=== PATIENT | male | born 1960 | race Caucasian/White ===

== ENCOUNTER 2020-03-19 11:20 | Emergency (ER) | payer OTHER, SELFPAY ==
--- NOTE | ~2020-03-19 | XR_ITS ---
EXAMINATION: XR lumbar spine 2-3V EXAM DATE: 03/19/2020 12:19 INDICATION: back pain started yesterday no injury. TECHNIQUE: Lumber spine frontal, lateral, lateral L5-S1 projections for interpretation. There is no prior study for comparison. FINDINGS: There is mild to moderate L5-S1 disc disease, mild at the other lumbar levels. Small lumba r endplate osteophytes. Mild upper lumbar, mild to moderate mid and lower lumbar facet arthropathy. S acrum, sacroiliac joints, sacral arcuate lines are intact. Paraspinal soft tissue is unremarkable. IMPRESSION: Mild to moderate lumbar spondylosis. Reviewed, dictated and finalized at location B. RAPHIC INFORMATION SYSTEM SURVEYOR
[2020-03-19 11:45] VITALS: BP 135/76; PULSE 101; RESP 24; TEMP 36.4; O2SAT 100
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
[2020-03-19] MEDS: KETOROLAC (*BKC) 60 MG/2 ML VIAL IM (12:29)
== END 2020-03-19 12:48 | disposition home or self-care (01) ==
PROVIDERS: Emergency Provider Nurse Practitioner Family
DX: M54.5 Low back pain (principal); T33.90XA Superficial frostbite of unspecified sites, initial encounter; X31.XXXA Exposure to excessive natural cold, initial encounter; M47.816 Spondylosis without myelopathy or radiculopathy, lumbar region; F17.210 Nicotine dependence, cigarettes, uncomplicated
CPT/HCPCS: 72100; 96372; 99213; G0463; J1885

== ENCOUNTER 2020-05-15 11:41 | Emergency (ER) | payer OTHER, SELFPAY ==
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
[2020-05-15 11:59] VITALS: BP 154/101; PULSE 90; RESP 16; TEMP 37.3; O2SAT 99
--- NOTE | 2020-05-15 12:22 | PC.NURSE ---
merchandise clerk gave report to anant ames
== END 2020-05-15 12:28 | disposition short-term general hospital (02) ==
LOC: EXPCOLL 11:44
PROVIDERS: Emergency Provider Nurse Practitioner
DX: J39.2 Other diseases of pharynx (principal); Z20.822 Contact with and (suspected) exposure to COVID-19; Z59.0 Homelessness; Z87.891 Personal history of nicotine dependence
CPT/HCPCS: 87081; 87426; 87880; 99213; C9803; G0463

== ENCOUNTER 2020-05-15 12:45 | Observation (INO) | payer OTHER, SELFPAY ==
[2020-05-15] VITALS (11 sets, daily range): BP systolic 124–160; BP diastolic 54–103; PULSE 69–86; RESP 13–18; TEMP 36.9–37.2; O2SAT 96–100; BMI 22.5
--- NOTE | ~2020-05-15 | XR_ITS ---
XR chest 1V portable 05/15/2020 15:12 Indication: Cough Procedure: AP portable chest Comparison: 08/28/2013 Findings: Heart size normal. Developing left basilar airspace disease. No pleural effusion, edema or pneumothorax. No acute osseous abnormality. Impression: 1: Left basilar airspace disease may represent atelectasis and/or pneumonia. Reviewed, dictated and finalized at location A. TS INSTRUCTOR Impression: 1: Left basilar airspace disease may represent atelectasis and/or pneumonia.
--- NOTE | ~2020-05-15 | CT_ITS ---
EXAMINATION: CT soft tissue neck w con EXAM DATE: 05/15/2020 13:27 INDICATION: Throat swelling. TECHNIQUE: Spiral CT of the neck was performed following intravenous injection of 75 mL Omnipaque 350 . Axial, coronal and sagittal images were reviewed. The dose-length product (DLP) for this examinat ion was 613.06 mGy-cm. The exposure was tailored according to patient size (auto mA exposure control ), and iterative reconstruction (ASIR) was used as additional dose reduction technique. There is no prior study for comparison. FINDINGS: The left side of the pharynx is edematous from the nasopharynx through the hypopharynx. Uvu la is severely edematous as is the left tonsil, with heterogeneous centrally lower density, most like ly phlegmon, early developing unorganized abscess. The central hypodense region measures about 1 x 2 cm, but there is no peripheral wall enhancement at this time to suggest organization of this. The epiglottis is moderately edematous, thickened to 9 mm, with effacement of the left vallecula and piriform sinuses. Airway has adequate caliber at this time. Some edema within the hypopharyngeal prev ertebral fat, but this does not extend into the chest. There is some debris within the dependent aspe ct of the trachea. Edema within the left parapharyngeal fat. No cervical lymphadenopathy. Mild bilate ral carotid bulb arterial sclerosis, no stenosis. No evidence of venous thrombosis. Pleural-based left lower lobe superior segmental nodule measuring 1 cm. There is mild emphysema. Apic al bullous disease. IMPRESSION: 1. Severe left pharyngeal edema from the nasopharynx through the hypopharynx. 2. Suspect early developing necrosis/abscess of the left tonsil. 3. Moderately edematous epiglottis. 4. Indeterminate left lower lobe nodule; follow-up [address] chest without contrast. I discussed acute findings with Osman Dumont MD at 05/15/2020 13:49 BULK PLANT AGENT . Reviewed, dictated and finalized at location B. PLANT AGENT IMPRESSION: 1. Severe left pharyngeal edema from the nasopharynx through the hypopharynx. 2. Suspect early developing necrosis/abscess of the left tonsil. 3. Moderately edematous epiglottis. 4. Indeterminate left lower lobe nodule; follow-up [address] chest without co ntrast. I discussed acute findings with Osman Dumont MD at 05/15/2020 13:49 BULK PLANT AGENT .
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
[2020-05-15 13:14] LABS: Basophils Percent Auto 0.1 % (0.2-1.2); Eosinophils Absolute Auto 0.1 K/mm3 (0-0.3); Eosinophils Percent Auto 0.8 % (0-4.4); Hematocrit 40.6 % (42.0-52.0); Hemoglobin 13.9 g/dL (14.0-18.0); Immature Granulocyte Absolute 0.03 K/mm3 (0.00-0.031); Immature Granulocyte Percent A 0.2 % (0-0.5); Lymphocytes Absolute Auto 1.25 K/mm3 (0.9-3.2); Lymphocytes Percent Auto 10.4 % (18.3-44.2); Mean Corpuscular HGB Conc 34.2 g/dl (32-36); Mean Corpuscular Hemoglobin 32.1 pg (26-34); Mean Corpuscular Volume 93.8 fl (80-100); Mean Platelet Volume 10.7 fl (7.4-10.4); Monocytes Absolute Auto 1.1 K/mm3 (0.1-0.6); Monocytes Percent Auto 9.4 % (2.6-8.5); Neutrophils Absolute Auto 9.6 K/mm3 (1.3-6.7); Neutrophils Percent Auto 79.1 % (45.5-73.1); Platelet Count Result 148 k/mm3 (150-375); Red Blood Count 4.33 M/mm3 (4.6-6.20); Red Cell Distribution Width 12.7 % (11.5-14.5); White Blood Count 12.1 K/mm3 (4.5-10.0)
[2020-05-15 13:22] LABS: Estimated CRCL calculation 62 ml/min; Estimated Glomerular Filt Rate 57
[2020-05-15 13:25] LABS: Anion Gap 8 mmol/L (8-16); Blood Urea Nitrogen 22 mg/dL (9-20); Calcium 8.7 mg/dL (8.4-10.2); Carbon Dioxide 26 mmol/L (22-30); Chloride 102 mmol/L (98-107); Estimated CRCL calculation 62 ml/min; Estimated Glomerular Filt Rate 57; Glucose 104 mg/dL (75-110); Potassium 4.2 mmol/L (3.4-5.0); Sodium 136 mmol/L (137-145)
[2020-05-15] MEDS: AMPICILLIN SULB 3 GM/NS 100 ML 3 GM/100 ML VIAL IVPB ×2 (14:18→18:49)
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
--- NOTE | 2020-05-15 16:48 | PC.NURSE ---
EDP, ENT and hospitalist at bedside at this time.
--- NOTE | 2020-05-15 16:57 | PM.PROC ---
Procedure Note - Detailed Date of procedure: 05/15/20 Pre-op diagnosis: cyst on tonsil Difficulty breathing Post-op diagnosis: same Procedure performed: Flexible laryngoscopy Description of procedure: Consent obtained. Lidocaine applied to the nasal passage. Scope passed. Boggy edema of the soft palate. Mild boggy edema of the anterior epiglottis. No infectious debris or ulcerations. Surgeon: Tanner Roberts MD Disposition: no change Findings: Patient intubatable. Obstructive portions are uvula and left tonsil/peritonsilar region.
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
[2020-05-15] MEDS: LIDOCAINE HCL 2% VISC SOLN 15 ML UDC PO (17:35)
[2020-05-15] MEDS: FAMOTIDINE 20 MG/2 ML VIAL IV PUSH (17:35)
[2020-05-15] MEDS: KETOROLAC 30 MG/ML VIAL (*BKC) IV PUSH (17:35)
--- NOTE | 2020-05-15 18:44 | ADMGEN ---
This patient, Lawrence Abernathy, was admitted to Intensive Care Unit-7. Patient/family oriented to hospital policies and general routines including ID bracelet, bed and alarms, visiting hours, pain management, procedures, bathroom and other care routines, personal items, smoking policy, room service/diet, and visiting hours. Information on how to activate the Rapid Response Team has been discussed. Patient/Family are encouraged to report perceived risks to care and to ask questions if they do not understand what they are told or what they should do.
[2020-05-15] MEDS: SODIUM CHLORIDE 0.9% IV 1,000 ML 125 ML IV CONT (18:49)
[2020-05-16] VITALS: BP 144/81; PULSE 81; PULSE 82; RESP 16; TEMP 36.9; O2SAT 95; O2SAT 97
[2020-05-16] MEDS: AMPICILLIN SULB 3 GM/NS 100 ML 3 GM/100 ML VIAL IVPB ×3 (00:46→11:17)
[2020-05-16 02:00] VITALS: BP 147/85; PULSE 79; RESP 14; O2SAT 98
[2020-05-16 04:00] VITALS: BP 112/75; PULSE 63; PULSE 65; RESP 14; TEMP 36.9; O2SAT 96; O2SAT 97
[2020-05-16] MEDS: SODIUM CHLORIDE 0.9% IV 1,000 ML 125 ML IV CONT (04:20)
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
[2020-05-16 08:00] VITALS: BP 123/76; PULSE 94; RESP 18; TEMP 36.9; O2SAT 97
[2020-05-16 08:36] VITALS: PULSE 63; O2SAT 98
--- NOTE | 2020-05-16 09:17 | WPDCNINT ---
Assessment and Plan Assessment and plan (1) Angioedema: Code(s): T78.3XXA - Angioneurotic edema, initial encounter Status: Acute Assessment and Plan: Patient has left-sided neck pain, swelling in the throat, difficulty swallowing -ENT evaluated patient which he thought was likely angioedema -soft tissue neck CT scan: Severe left pharyngeal edema from the nasopharynx through the hypopharynx. . Suspect early developing necrosis/abscess of the left tonsil.Moderately edematous epiglottis. Indeterminate left lower lobe nodule; follow-up [address] chest without contrast -patient continue patient dexamethasone, Unasyn -will add famotidine and Benadryl -and advance to full liquid diet (2) Tobacco use: Code(s): Z72.0 - Tobacco use Status: Inactive Assessment and Plan: Consult patient on cessation of tobacco use, -declined nicotine patch (3) Nodule of left lung: Code(s): R91.1 - Solitary pulmonary nodule Status: Acute Assessment and Plan: Radiologist recommends 3 month follow-up with CT without contrast Additional Plan Discussed with patient updated with his condition and plan of care. He is aware that he is on steroids and antibiotics. ENT recommends that he stand the day in the hospital and receive IV antibiotics and IV dexamethasone. Patient states he does not stay in the hospital and has to go home. Hospital decide if the patient can be discharged Code status: Full code Critical care time spent: 43 minutes This dictation may have been done utilizing a voice recognition system. Attempts have been made to correct errors. However, there may be uncorrected grammatical, spelling, and recognition errors present. Due to a high probability of clinically significant, life threatening deterioration, the patient required my highest level of preparedness to intervene emergently and I personally spent this critical care time directly and personally managing the patient. This critical care time included obtaining a history; examining the patient; pulse oximetry; ordering and review of studies; arranging urgent treatment with development of a management plan; evaluation of patient's response to treatment; frequent reassessment; and discussions with other providers. It was exclusive of separately billable procedures and treating other patients and teaching time. 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 Patient stated he felt swelling his throat with pain on swallowing and had increased secretions. He did report some shortness of breath in the ER. ENT evaluated the patient with flexible laryngoscopy, findings more consistent with angioedema. CT scan of the neck and soft tissues revealed severe left pharyngeal edema from nasopharynx through the hypopharynx, suspect early developing necrosis/sepsis on the left tonsil. Moderately edematous epiglottis. Indeterminate left lower lobe nodule, follow-up [address] chest without contrast. Patient was started on Unasyn, dexamethasone. According the records patient has had similar episodes of angioedema in the past. He did admit to snorting cocaine a couple of days prior to admission. Patient was transferred to the ICU for close monitoring. Next Patient seen and examined this morning in the ICU, states that swelling is much improved able to swallow better without much pain. Patient is able to keep down clear liquid diet. ENT also evaluate the patient this morning and felt that the swe
--- NOTE | 2020-05-16 09:42 | PC.NURSE ---
Updated patient on the preferred plan of the ENT doctor to stay one more night while receiving IV antibiotics and steroids. Patient states he would rather go home with PO meds and follow up with ENT at a later date as ENT told him no procedure will likely be done during this admission.
[2020-05-16 10:00] VITALS: PULSE 64; RESP 16; O2SAT 98
[2020-05-16] MEDS: diphenhydrAMINE HCl CAP 25 MG CAPSULE PO (10:45)
[2020-05-16] MEDS: FAMOTIDINE 20 MG TABLET PO (10:45)
--- NOTE | 2020-05-16 12:41 | PC.NURSE ---
Patient is opting to leave AMA, Risks of leaving and benefits of staying discussed by myself, Dr. Morales, and Dr. Nix. Patient is alert and oriented and would prefer to be discharged home. Return reasons and prescription discussed with patient.
--- NOTE | 2020-05-16 13:13 | PM.DS ---
DS: Admitting Diagnosis Admitting Diagnosis Admitting Diagnosis: Left-sided throat pain. DS: Discharge Diagnosis Discharge Diagnosis (1) Pharyngeal edema: Code(s): J39.2 - Other diseases of pharynx Status: Acute Assessment and Plan: Interval history: Epiglottis directly visualized with fiberoptic scope per Dr. Roberts (ENT) at bedside. Epiglottis shows anterior angioedema with no infectious appearance. He has significant swelling and left peritonsillar region worker markedly edematous uvula but is maintaining his secretions and is not short of breath. At this time he recommends Decadron and Unasyn as developing infection or organizing abscess cannot be ruled out. The patient will be admitted to the intensive care unit for close monitoring. Unfortunately pt did not want to stay in the hospital and signed out against medical advice the next morning. Pt was filled steroids, Benadryl and famotidine on discharge. Seen by ICU MD AND ENT MD pt wants to leave now does not want anymore IV treatments. (2) Angioedema: Code(s): T78.3XXA - Angioneurotic edema, initial encounter Status: Acute Assessment and Plan: Plan as above. (3) Tobacco use: Code(s): Z72.0 - Tobacco use Status: Inactive Assessment and Plan: Patient declines need for nicotine patch. (4) Nodule of left lung: Code(s): R91.1 - Solitary pulmonary nodule Status: Acute Assessment and Plan: Intermediate left lower lobe nodule noted on CT. Radiologist recommends 3 month follow-up without contrast. Pt to follow with his pcp. Pt wants to leave now. DS: Summary Hospital Course Hospital Course: Interval history: Epiglottis directly visualized with fiberoptic scope per Dr. Roberts (ENT) at bedside. Epiglottis shows anterior angioedema with no infectious appearance. He has significant swelling and left peritonsillar region worker markedly edematous uvula but is maintaining his secretions and is not short of breath. At this time he recommends Decadron and Unasyn as developing infection or organizing abscess cannot be ruled out. The patient will be admitted to the intensive care unit for close monitoring. Unfortunately pt did not want to stay in the hospital and signed out against medical advice the next morning Time Spent with Patient Time attestation: Total time spent providing and/or coordinating discharge services:20 minutes on day of discharge Exam Narrative: Exam Narrative: General: unkempt upset HEENT: Scars from previous facial surgery. Neck: Supple. Left sided neck swelling below the angle of the jaw Gastrointestinal: Abdomen is soft, nontender Extremities: No cyanosis, clubbing, or edema. Neurological: Alert. Cranial nerves 2-12 are grossly intact. Able to talk and swallow, but L side neck and lower face still swollen Psychiatric: Pleasant and cooperative with appropriate mood and affect. DS: Data Data Completed and Pending Labs on day of discharge: Labs from last 24 hours 05/15/20 05/15/20 05/15/20 13:21 13:02 13:02 WBC 12.1 H RBC 4.33 L Hgb 13.9 L Hct 40.6 L MCV 93.8 MCH 32.1 MCHC 34.2 RDW 12.7 Plt Count 148 L MPV 10.7 H Immature Gran % (Auto) 0.2 Neut % (Auto) 79.1 H Lymph % (Auto) 10.4 L [place] % (Auto) 9.4 H Eos % (Auto) 0.8 Baso % (Auto) 0.1 L Lymph # (Auto) 1.25 [place] # (Auto) 1.1 H Eos # (Auto) 0.1 Baso # (Auto) 0.0 Abs Immat Gran (auto) 0.03 Absolute Neuts (auto) 9.6 H Absolute Nucleated RBC 0.0 Nucleated RBC % 0.0 Sodium 136 L Potassium 4.2 Chloride 102 Carbon Dioxide 26 Anion Gap 8 BUN 22 H Creatinine 1.30 1.30 Estim Creat Clear Calc 62 62 Estimated GFR 57 L 57 L Glucose 104 Calcium 8.7 Discharge Plan Discharge Attending physician on discharge: maddison Consulting providers: Nilesh Morales ; Tanner Roberts
== END 2020-05-16 13:00 | disposition left against medical advice (07) ==
LOC: ANHED 17:24 → ANHICU 17:41
PROVIDERS: Admitting Provider Family Medicine; Emergency Provider Emergency Medicine; PCP Emergency Medicine; Visit Provider Family Medicine
DX: T78.3XXA Angioneurotic edema, initial encounter (principal); J39.2 Other diseases of pharynx; R06.02 Shortness of breath; F14.90 Cocaine use, unspecified, uncomplicated; R91.1 Solitary pulmonary nodule; Z59.0 Homelessness; Z72.0 Tobacco use
CPT/HCPCS: 31575; 36415; 70491; 71045; 80048; 85025; 87081; 87426; 87880; 96361; 96365; 96366; 96375; 96376; 99285; A9270; C9803; G0378; G0379; J0295; J1100; J1885; J7030; Q9967

== ENCOUNTER 2020-06-20 13:09 | Outpatient (CLI) | payer OTHER, SELFPAY | END 2020-06-20 13:10 | disposition home or self-care (01) | LOC: ANHCOVIDVC 13:09 | PROVIDERS: PCP Emergency Medicine | DX: Z23 Encounter for immunization (principal) | CPT/HCPCS: 0001A; 91300 ==

== ENCOUNTER 2020-07-11 13:05 | Outpatient (CLI) | payer OTHER, SELFPAY | END 2020-07-11 13:06 | disposition home or self-care (01) | LOC: ANHCOVIDVC 13:05 | PROVIDERS: PCP Emergency Medicine | DX: Z23 Encounter for immunization (principal) | CPT/HCPCS: 0002A; 91300 ==

== ENCOUNTER 2022-04-01 00:29 | Emergency (ER) | payer OTHER, SELFPAY ==
[2022-04-01] VITALS (17 sets, daily range): BP systolic 148–250; BP diastolic 93–228; PULSE 69–92; RESP 15–30; TEMP 36.8; O2SAT 98–100
--- NOTE | ~2022-04-01 | CT_ITS ---
Clinical Indication: Trauma CT Scan of the Chest, Abdomen, and Pelvis with Contrast: Technique: Contiguous sections were acquired throughout the chest, abdomen, and pelvis after intraven ous administration of 100 cc of Omnipaque 350. Dose reduction technique was used on this scan by uti lizing automated exposure control and iterative reconstruction technique. The dose-length product (DL P) was 714.36 mGy-cm. Findings: There is no evidence of any significant mediastinal, hilar or axillary lymphadenopathy. The mediastin al soft tissues and vascular structures appear normal. There is no evidence of pleural or pericardial effusion. Small right pneumothorax is present. There is biapical paraseptal emphysematous change. There is a 1. 2 cm pleural-based pulmonary nodule posteriorly at the superior segment of the left lower lobe (axial image 50). There is an additional 9 mm pulmonary nodule posteriorly at the left lower lobe region (a xial image 102). There is a fracture at the lateral aspect of the right fifth rib (axial image 77), mildly displaced. There is an additional oblique, nearly nondisplaced fracture at the posterior aspect of the right fif th rib (coronal image 104). The liver, spleen, pancreas, gallbladder, adrenals and kidneys are within normal limits. No evidence of aortic aneurysm. No lymphadenopathy. No bowel obstruction or bowel wall thickening. There is no evidence to suggest acute appendicitis. Urinary bladder is unremarkable. Prostate gland and seminal vesicles are unremarkable. Impression: Small right pneumothorax. Fractures of the lateral and posterior aspects of the right fifth rib, as detailed above. 1.2 cm pleural-based pulmonary nodule at the superior segment of left lower lobe. Additional 0.9 cm l eft lower lobe pulmonary nodule. Given sizes, follow-up recommendations would include 3 month follow- up CT, PET/CT, or tissue sampling of the larger nodule. Reviewed, dictated and finalized at location [facility] Impression: Small right pneumothorax. Fractures of the lateral and posterior aspects of the right fifth rib, as detcarla led above. 1.2 cm pleural-based pulmonary nodule at the superior segment of left lower lob e. Additional 0.9 cm left lower lobe pulmonary nodule. Given sizes, follow-up r ecommendations would include 3 month follow-up CT, PET/CT, or tissue sampling o f the larger nodule.
[2022-04-01] MEDS: MORPHINE SULFATE (*CRX) 4 MG/ML INJ IV PUSH ×2 (01:07→02:21)
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
[2022-04-01 01:22] LABS: Basophils Percent Auto 0.4 % (0.2-1.2); Eosinophils Percent Auto 0.8 % (0-4.4); Hematocrit 38.5 % (42.0-52.0); Hemoglobin 13.2 g/dL (14.0-18.0); Immature Granulocyte Absolute 0.02 K/mm3 (0.00-0.031); Immature Granulocyte Percent A 0.4 % (0-0.5); Lymphocytes Absolute Auto 0.97 K/mm3 (0.9-3.2); Lymphocytes Percent Auto 20.6 % (18.3-44.2); Mean Corpuscular HGB Conc 34.3 g/dl (32-36); Mean Corpuscular Volume 93.4 fl (80-100); Mean Platelet Volume 10.6 fl (7.4-10.4); Monocytes Absolute Auto 0.6 K/mm3 (0.1-0.6); Monocytes Percent Auto 13.4 % (2.6-8.5); Neutrophils Percent Auto 64.4 % (45.5-73.1); Platelet Count Result 160 k/mm3 (150-375); Red Blood Count 4.12 M/mm3 (4.6-6.20); Red Cell Distribution Width 12.6 % (11.5-14.5); White Blood Count 4.7 K/mm3 (4.5-10.0)
[2022-04-01 01:33] LABS: Alanine Aminotransferase 23 U/L (6-50); Alkaline Phosphatase 94 U/L (38-126); Anion Gap 5 mmol/L (8-16); Aspartate Amino Transferase 35 U/L (17-59); Bilirubin,Total 0.5 mg/dL (0.2-1.3); Blood Urea Nitrogen 15 mg/dL (9-20); Calcium 8.3 mg/dL (8.4-10.2); Carbon Dioxide 29 mmol/L (22-30); Chloride 100 mmol/L (98-107); Estimated CRCL calculation 73 ml/min; Estimated Glomerular Filt Rate > 60; Glucose 98 mg/dL (65-110); Lipase 115 U/L (23-300); Potassium 3.8 mmol/L (3.4-5.0); Sodium 134 mmol/L (137-145)
--- NOTE | 2022-04-01 02:08 | PC.NURSE ---
Patient placed in c-collar at this time.
== END 2022-04-01 03:02 | disposition short-term general hospital (02) ==
PROVIDERS: Emergency Provider Emergency Medicine
DX: S27.0XXA Traumatic pneumothorax, initial encounter (principal); S22.41XA Multiple fractures of ribs, right side, initial encounter for closed fracture; F41.9 Anxiety disorder, unspecified; F32.9 Major depressive disorder, single episode, unspecified; W11.XXXA Fall on and from ladder, initial encounter
CPT/HCPCS: 36415; 71260; 74177; 80053; 83690; 85025; 96374; 96376; 99285; J2270; L0140; Q9967